=== PATIENT | female | born 1970 | race Caucasian/White ===

== ENCOUNTER 2020-10-31 08:57 | Outpatient (CLI) | payer OTHER, SELFPAY ==
[2020-10-31 09:30] LABS: Basophils Absolute Auto 0.1 K/mm3 (0.0-0.1); Basophils Percent Auto 1.7 % (0.2-1.2); Eosinophils Absolute Auto 0.3 K/mm3 (0-0.3); Eosinophils Percent Auto 3.2 % (0-4.4); Hematocrit 41.8 % (37.0-47.0); Hemoglobin 13.5 g/dL (12.0-15.0); Immature Granulocyte Absolute 0.02 K/mm3 (0.00-0.031); Immature Granulocyte Percent A 0.2 % (0-0.5); Lymphocytes Absolute Auto 3.37 K/mm3 (0.9-3.2); Lymphocytes Percent Auto 41.2 % (18.3-44.2); Mean Corpuscular HGB Conc 32.3 g/dl (32-36); Mean Corpuscular Hemoglobin 29.7 pg (26-34); Mean Corpuscular Volume 91.9 fl (80-100); Mean Platelet Volume 11.2 fl (7.4-10.4); Monocytes Absolute Auto 0.8 K/mm3 (0.1-0.6); Monocytes Percent Auto 10.3 % (2.6-8.5); Neutrophils Absolute Auto 3.6 K/mm3 (1.3-6.7); Neutrophils Percent Auto 43.4 % (45.5-73.1); Platelet Count Result 268 k/mm3 (150-375); Red Blood Count 4.55 M/mm3 (4.2-5.4); Red Cell Distribution Width 12.5 % (11.5-14.5); White Blood Count 8.2 K/mm3 (4.5-10.0)
[2020-10-31 09:41] LABS: Alanine Aminotransferase 27 U/L (4-35); Albumin Level 4.9 g/dL (3.5-5.1); Alkaline Phosphatase 116 U/L (38-126); Anion Gap 10 mmol/L (8-16); Aspartate Amino Transferase 25 U/L (14-36); Bilirubin,Total 0.7 mg/dL (0.2-1.3); Blood Urea Nitrogen 11 mg/dL (7-17); Calcium 9.9 mg/dL (8.4-10.2); Carbon Dioxide 25 mmol/L (22-30); Chloride 106 mmol/L (98-107); Cholesterol 184 mg/dL (0-200); Estimated Glomerular Filt Rate > 60; Glucose 103 mg/dL (65-110); HDL Direct 87 mg/dL; Potassium 4.2 mmol/L (3.4-5.0); Sodium 141 mmol/L (137-145); Triglycerides 126 mg/dL (<150)
[2020-10-31 09:52] LABS: LDL Cholesterol Direct 69 mg/dL
== END 2020-10-31 08:58 | disposition home or self-care (01) ==
PROVIDERS: PCP Internal Medicine; Visit Provider Nurse Practitioner
DX: R10.13 Epigastric pain (principal); Z13.220 Encounter for screening for lipoid disorders
CPT/HCPCS: 36415; 80053; 80061; 84443; 85025

== ENCOUNTER 2020-11-01 08:13 | Outpatient (CLI) | payer OTHER, SELFPAY ==
--- NOTE | ~2020-11-01 | US_ITS ---
EXAMINATION: US abdomen complete DATE: 11/01/2020 08:58 INDICATION: Epigastric pain TECHNIQUE: Multiple grayscale and Doppler ultrasound images of the abdomen were obtained. COMPARISON: None FINDINGS: The pancreatic head and body are normal in appearance. The pancreatic tail is not visualized. Visual ized proximal to mid aorta and inferior vena cava are normal. Liver has normal echogenicity and conto ur, with a smooth surface. No liver lesion identified. No intrahepatic biliary duct dilation suspecte d. Portal venous flow was seen in the hepatopetal, normal direction and has normal Doppler waveform. The gallbladder is normal in appearance. There is no cholelithiasis. The common bile duct measures 3 mm, which is normal. Sonographic Meneses sign was reported as negative by the immigration paralegal. There is n ormal renal contour and echogenicity bilaterally. The right kidney measures at least 6.0 x 3.9 x 3.2 cm but is suboptimally visualized. The left 9.7 x 3.9 x 4.9 cm. There are no focal renal lesions martell ntified. There is no hydronephrosis. Spleen is normal measuring 8.6 cm maximal craniocaudal length. IMPRESSION: 1. Right kidney appears smaller than the left kidney suggesting atrophy but is suboptimally imaged wh ich decreases specificity. Otherwise unremarkable abdominal ultrasound. Reviewed, dictated and finalized at location A. IMPRESSION: 1. Right kidney appears smaller than the left kidney suggesting atrophy but is suboptimally imaged which decreases specificity. Otherwise unremarkable abdomin al ultrasound.
== END 2020-11-01 08:14 | disposition home or self-care (01) ==
LOC: ANHIMG 08:17
PROVIDERS: PCP Internal Medicine; Visit Provider Nurse Practitioner
DX: R10.13 Epigastric pain (principal)
CPT/HCPCS: 76700

== ENCOUNTER 2020-11-02 10:04 | Outpatient (CLI) | payer OTHER, SELFPAY ==
--- NOTE | 2020-11-02 10:35 | EST_ITS ---
Patient Info Name: Kristina Lester Age: 50 years : 1970 Gender: Female Ht: 65 in Wt: 150 lbs BSA: 1.78 m2 HR: 89 bpm BP: 149 / 94 mmHg Heart Rhythm: Sinus Rhythm Exam Date: 11/02/2020 11:17 AM Exam Location: [facility] Stress Patient Status: Outpatient Admit Date: 11/02/2020 Staff Ordering Physician: Samia Tyler NP Attending Provider: Samia Tyler NP Exercise Technologist: Chantale Bingham CT Exercise Physician: Matt Freeman DO Exam Type: CA stress test treadmill Study Info An exercise stress test was performed. Summary 1. 1. Negative Claudio exercise stress test for ischemic ST changes by ECG criteria. 2. 2. Reduced functional capacity, achieving 7 METS of workload. 3. 3. Baseline hypertension. 4. 4. Appropriate HR response to exercise. 5. 5. Appropriate HR recovery at 1 minute post exercise. 6. 6. No imaging with stress testing. 7. 7. Patient informed of the above results. Protocol: Claudio Stress ECG Details Stage: REST Duration (min): 0 min : 52 sec Speed (mph): 0.0 Grade (%): 0 HR (bpm): 86 SBP (mmHg): 149 DBP (mmHg): 94 METS: --- Stage: REST Duration (min): 1 min : 24 sec Speed (mph): 0.0 Grade (%): 0 HR (bpm): 87 SBP (mmHg): 149 DBP (mmHg): 94 METS: --- Stage: REST Duration (min): 13 min : 46 sec Speed (mph): 0.0 Grade (%): 0 HR (bpm): 91 SBP (mmHg): 149 DBP (mmHg): 94 METS: --- Stage: STAGE 1 Duration (min): 1 min : 0 sec Speed (mph): 1.7 Grade (%): 10 HR (bpm): 118 SBP (mmHg): 149 DBP (mmHg): 94 METS: --- Stage: STAGE 1 Duration (min): 2 min : 0 sec Speed (mph): 1.7 Grade (%): 10 HR (bpm): 139 SBP (mmHg): 149 DBP (mmHg): 94 METS: --- Stage: STAGE 1 Duration (min): 3 min : 0 sec Speed (mph): 1.7 Grade (%): 10 HR (bpm): 147 SBP (mmHg): 195 DBP (mmHg): 47 METS: --- Stage: STAGE 2 Duration (min): 1 min : 0 sec Speed (mph): 2.5 Grade (%): 12 HR (bpm): 156 SBP (mmHg): 195 DBP (mmHg): 47 METS: --- Stage: STAGE 2 Duration (min): 2 min : 0 sec Speed (mph): 2.5 Grade (%): 12 HR (bpm): 161 SBP (mmHg): 195 DBP (mmHg): 47 METS: --- Stage: STAGE 2 Duration (min): 2 min : 31 sec Speed (mph): 2.5 Grade (%): 12 HR (bpm): 162 SBP (mmHg): 195 DBP (mmHg): 47 METS: --- Stage: RECOVERY Duration (min): 0 min : 28 sec Speed (mph): 0.0 Grade (%): 0 HR (bpm): 158 SBP (mmHg): 195 DBP (mmHg): 47 METS: --- Stage: RECOVERY Duration (min): 1 min : 28 sec Speed (mph): 0.0 Grade (%): 0 HR (bpm): 129 SBP (mmHg): 195 DBP (mmHg): 47 METS: --- Stage: RECOVERY Duration (min): 2 min : 28 sec Speed (mph): 0.0 Grade (%): 0 HR (bpm): 45 SBP (mmHg): 195 DBP (mmHg): 47 METS: --- Stage: RECOVERY
== END 2020-11-02 10:05 | disposition home or self-care (01) ==
PROVIDERS: PCP Internal Medicine; Visit Provider Nurse Practitioner
DX: R10.13 Epigastric pain (principal)
CPT/HCPCS: 93017

== ENCOUNTER 2020-12-29 08:43 | Outpatient (CLI) | payer OTHER, SELFPAY ==
--- NOTE | ~2020-12-29 | XR_ITS ---
EXAMINATION: XR_CERV2-3V_CR DATE: 12/29/2020 08:57 INDICATION: Neck pain. TECHNIQUE: 3 views of cervical spine were obtained. COMPARISON: None. FINDINGS: There is 2 mm retrolisthesis of C5 on C6. Vertebral body heights are normal. There is moder ately decreased disc height at C5-C6. There is multilevel mild uncovertebral joint osteoarthritis. Th e facet joints are unremarkable. There is mild central canal stenosis at C5-C6. No prevertebral soft tissue swelling. IMPRESSION: 1. Moderate spondylosis at C5-C6. Reviewed, dictated and finalized at location B. 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
== END 2020-12-29 08:44 | disposition home or self-care (01) ==
LOC: ANHIMG 08:46
PROVIDERS: PCP Internal Medicine; Visit Provider Clinical Nurse Specialist
DX: M54.2 Cervicalgia (principal); M47.892 Other spondylosis, cervical region
CPT/HCPCS: 72040

== ENCOUNTER → 2021-01-19 08:09 | Outpatient (CLI) | payer OTHER, SELFPAY ==
--- NOTE | ~2021-01-19 | MR_ITS ---
EXAMINATION: MR cervical spine wo con DATE: 01/19/2021 09:34 INDICATION: Cervical spondylosis without myelopathy or radiculopathy. Neck pain. TECHNIQUE: Magnetic resonance imaging (MRI) of the cervical spine was performed without intravenous c ontrast. Sequences included sagittal T2-weighted FSE, sagittal STIR FSE, sagittal T1-weighted FSE, ax ial MERGE, and axial T2-weighted FSE. COMPARISON: Cervical spine radiographs 01/28/2021 FINDINGS: There is kyphosis of cervical spine. Vertebral body heights are normal. There is severely d ecreased disc height at C5-C6 with endplate remodeling. The spinal cord signal intensity is normal. T he following disc levels are specifically discussed: C2-C3: The disc does not extend beyond the endplate margin. There is no uncovertebral joint osteoarth ritis. There is mild bilateral facet joint osteoarthritis. There is no neural foraminal stenosis. The re is no central canal stenosis. C3-C4: The disc does not extend beyond the endplate margin. There is no uncovertebral joint osteoarth ritis. There is mild left facet joint osteoarthritis. There is no neural foraminal stenosis. There is no central canal stenosis. C4-C5: The disc does not extend beyond the endplate margin. There is moderate right and mild left unc overtebral joint osteoarthritis. There is mild bilateral facet joint osteoarthritis. There is mild bi lateral neural foraminal stenosis. There is no central canal stenosis. C5-C6: The disc is bulging. There is severe bilateral uncovertebral joint osteoarthritis. There is no facet joint osteoarthritis. There is mild bilateral neural foraminal stenosis. There is mild central canal stenosis with ventral indentation of the spinal cord. C6-C7: The disc is bulging. There is mild right and moderate left uncovertebral joint osteoarthritis. There is no facet joint osteoarthritis. There is mild right and moderate left neural foraminal steno sis. There is mild central canal stenosis. C7-T1: The disc does not extend beyond the endplate margin. There is no uncovertebral joint osteoarth ritis. There is moderate severe left facet joint osteoarthritis. There is mild bilateral neural jacki inal stenosis. There is no central canal stenosis. IMPRESSION: 1. Severe cervical spondylosis, worst at C5-C6. Reviewed, dictated and finalized at location A. L TRUCK DRIVER
== END ==
PROVIDERS: PCP Internal Medicine; Visit Provider Clinical Nurse Specialist
DX: M47.812 Spondylosis without myelopathy or radiculopathy, cervical region (principal); M47.813 Spondylosis without myelopathy or radiculopathy, cervicothoracic region; M48.03 Spinal stenosis, cervicothoracic region
CPT/HCPCS: 72141

== ENCOUNTER 2021-02-09 00:21 | Day surgery (SDC) | payer OTHER, SELFPAY ==
[2021-01-21 10:43] VITALS: BMI 25.0
[2021-02-09 10:57] VITALS: BP 141/75; PULSE 85; RESP 16; TEMP 36.4; O2SAT 100
--- NOTE | 2021-02-09 10:58 | WPDANESEPPF ---
Anes - Initial Pre Proc Eval Procedure: Operation Date: 02/09/21 12:30 Proposed Procedures p Esophagogastroduodenoscopy - Wayne Farooq MD Date/Time: 02/09/21 10:58 Surgeon: Wayne Farooq MD Pre Op Diagnosis: epigastric pain Patient Data Age: 51 Gender: F Height: 1.65 m Weight: 65.6 kg Last Vital Signs Temp 97.6 F 02/09/21 10:57 Pulse 85 02/09/21 10:57 Resp 16 02/09/21 10:57 BP 141/75 H 02/09/21 10:57 Pulse Ox 100 02/09/21 10:57 Allergies Allergy/AdvReac Type Severity Reaction Status Date / Time ciprofloxacin Allergy Unknown nosebleeds Verified 02/09/21 10:56 erythromycin base Allergy Unknown Nausea Verified 02/09/21 10:56 Home Medications Medication Instructions Recorded Confirmed Type No Home Medications 10/21/20 02/09/21 History Patient hx anesthesia problems: none Family hx anesthesia problems: none Results Review: All pre-operative results and documents have been reviewed as part of the pre-operative evaluation. [facility] Past Medical History Medical History Allergic rhinitis, cause unspecified Hx of esophageal reflux Simple or unspecified chronic serous otitis media Family History Family History Father Diabetes mellitus Hypertension Grandparent Cancer Social History Social History Smoking status: Never smoker Alcohol intake: unknown Substance use: never Anes - Eval Final PreProcedure Day of Procedure 02/09/21 10:58 Patient weight: overweight Heart: regular rate and rhythm Lungs: clear to auscultation Airway: Mallampati scale class II Neurological: alert and oriented Last oral intake: >/= 8 hours ASA classification: II Emergent: no Anesthetic plan: proceed Anesthesia type and monitoring: general GIVS and standard monitoring Results Review: All pre-operative results and documents have been reviewed as part of the pre-operative evaluation. Informed Consent: The patient's anesthetic plan and its attendant risks and benefits were discussed with the patient/family/POA. Questions were solicited and answers provided to the satisfaction of the patient/family/POA.
[2021-02-09] MEDS: LACTATED RINGERS 1,000 ML 150 ML IV CONT (11:02)
--- NOTE | 2021-02-09 11:10 | PM.HPGS ---
History of Present Illness History of Present Illness Consent: Risks, benefits, and alternatives have been discussed and questions answered. Patient agrees to proceed with procedure. Chief complaint: epigastric pain Narrative: Kristina Lester is a 51 year old female with epigastric pain with radiation to luq and chest, denies gerd in fact tried ppi but did not help, stress test negative, also tried physical therapy without much improvement (also having neck pain). Never had egd Review of Systems Constitutional: Constitutional: Denies headache(s) and Denies weakness Eyes: Eyes: Denies blurry vision ENT: Reports Normal hearing present, Denies headache(s) and Denies neck pain Cardiovascular: Cardiovascular: Denies chest pain and Denies dyspnea Respiratory: Respiratory: Denies dyspnea Gastrointestinal: Gastrointestinal: Reports no additional gastrointestinal complaints Genitourinary: Genitourinary: Denies dysuria Musculoskeletal: Musculoskeletal: Denies neck pain Integumentary/Breasts: Skin/Breast: Denies dry skin Neurologic: Reports Normal hearing present, Denies headache(s) and Denies weakness Psychiatric: Psychiatric: Denies anxiety Endocrine: Endocrine: Denies change in body appearance Hematologic/Lymphatic: Hematologic/Lymphatic: Denies easy bleeding Allergic/Immunologic: Allergic/Immunologic: Denies urticaria PMFSH Past Medical History Medical History Allergic rhinitis, cause unspecified Hx of esophageal reflux Simple or unspecified chronic serous otitis media Family History Family History Father Diabetes mellitus Hypertension Grandparent Cancer Social History Social History Smoking status: Never smoker Alcohol intake: unknown Substance use: never Meds Home Medications and Allergies Home Medications Medication Instructions Recorded Confirmed Type No Home Medications 10/21/20 02/09/21 History Allergies Allergy/AdvReac Type Severity Reaction Status Date / Time ciprofloxacin Allergy Unknown nosebleeds Verified 02/09/21 10:56 erythromycin base Allergy Unknown Nausea Verified 02/09/21 10:56 Vital Signs Vital Signs - 24 hr 02/09/21 10:57 Temperature 97.6 F Pulse Rate 85 Respiratory Rate 16 Blood Pressure 141/75 H Pulse Oximetry 100 Exam Const: General: comfortable and no acute distress HENMT: General nose exam: Normal nares present Eyes: General: appearance normal, both eyes and all related structures Neck: Neck: no JVD Resp: Auscultation: clear to auscultation bilaterally Cardio: Rate: regular rate Rhythm: regular rhythm GI: Inspection: non-distended GI Palp: Yes Soft to palpation Skin: General skin exam: normal color Neuro: General: gait normal Speech: normal speech Extrem: General: normal to inspection Psych: Mental Status: mental status grossly normal Assessment and Plan Assessment and plan (1) Epigastric pain: Code(s): R10.13 - Epigastric pain Status: Acute Assessment and Plan: egd with bx to assess if pain is gi related, ? MSK (2) Neck pain: Code(s): M54.2 - Cervicalgia Status: Acute
[2021-02-09] MEDS: BENZOCAINE (*SP) 60 ML SPRAY CAN (HURRICAINE) 1 SPRAY MUCOUS MEM (11:19)
[2021-02-09 11:27] VITALS: BP 112/68; PULSE 90; RESP 18; O2SAT 97
[2021-02-09 11:37] VITALS: BP 133/74; PULSE 95; RESP 18; O2SAT 99
[2021-02-09 11:47] VITALS: BP 132/70; PULSE 96; RESP 20; O2SAT 99
== END 2021-02-09 11:55 | disposition home or self-care (01) ==
PROVIDERS: PCP Internal Medicine; Visit Provider Internal Medicine Gastroenterology
PROC: 0DJ08ZZ Inspection of Upper Intestinal Tract, Via Natural or Artificial Opening Endoscopic (ICD-10-PCS; CPT 43235; principal; 2021-02-09 12:30)
DX: R10.13 Epigastric pain (principal); M54.2 Cervicalgia
CPT/HCPCS: 43239; 88305; J2704; J7120

== ENCOUNTER 2021-05-04 08:07 | Outpatient (CLI) | payer OTHER, SELFPAY ==
--- NOTE | ~2021-05-04 | XR_ITS ---
EXAMINATION: XR chest 2V DATE: 05/04/2021 08:28 INDICATION: Left chest pain TECHNIQUE: PA and lateral views of the chest were obtained. COMPARISON: None FINDINGS: The lungs are clear with no focal airspace opacities, pulmonary edema, pleural effusion or pneumothor ax. The cardiomediastinal silhouette is normal. Visualized bones and soft tissues are unremarkable. IMPRESSION: 1. No acute cardiopulmonary disease. Reviewed, dictated and finalized at location A.
[2021-05-04 09:19] LABS: Basophils Absolute Auto 0.1 K/mm3 (0.0-0.1); Basophils Percent Auto 1.5 % (0.2-1.2); Eosinophils Absolute Auto 0.2 K/mm3 (0-0.3); Eosinophils Percent Auto 2.5 % (0-4.4); Hematocrit 41.3 % (37.0-47.0); Hemoglobin 12.9 g/dL (12.0-15.0); Immature Granulocyte Absolute 0.02 K/mm3 (0.00-0.031); Immature Granulocyte Percent A 0.3 % (0-0.5); Lymphocytes Absolute Auto 3.15 K/mm3 (0.9-3.2); Lymphocytes Percent Auto 43.2 % (18.3-44.2); Mean Corpuscular HGB Conc 31.2 g/dl (32-36); Mean Corpuscular Hemoglobin 29.1 pg (26-34); Mean Corpuscular Volume 93.2 fl (80-100); Mean Platelet Volume 11.3 fl (7.4-10.4); Monocytes Absolute Auto 0.7 K/mm3 (0.1-0.6); Monocytes Percent Auto 9.6 % (2.6-8.5); Neutrophils Absolute Auto 3.1 K/mm3 (1.3-6.7); Neutrophils Percent Auto 42.9 % (45.5-73.1); Platelet Count Result 240 k/mm3 (150-375); Red Blood Count 4.43 M/mm3 (4.2-5.4); Red Cell Distribution Width 13.1 % (11.5-14.5); White Blood Count 7.3 K/mm3 (4.5-10.0)
[2021-05-04 09:30] LABS: Alanine Aminotransferase 31 U/L (4-35); Albumin Level 4.8 g/dL (3.5-5.1); Alkaline Phosphatase 97 U/L (38-126); Anion Gap 10 mmol/L (8-16); Aspartate Amino Transferase 30 U/L (14-36); Bilirubin,Total 0.9 mg/dL (0.2-1.3); Blood Urea Nitrogen 15 mg/dL (7-17); Calcium 9.5 mg/dL (8.4-10.2); Carbon Dioxide 24 mmol/L (22-30); Chloride 106 mmol/L (98-107); Estimated Glomerular Filt Rate > 60; Glucose 91 mg/dL (65-110); Sodium 140 mmol/L (137-145)
[2021-05-04 09:32] LABS: Rheumatoid Factor < 8.6 IU/ML (<12)
[2021-05-04 11:34] LABS: Erythrocyte Sedimentation Rate 20 mm/hr (0-20)
== END 2021-05-04 08:08 | disposition home or self-care (01) ==
LOC: ANHIMG 08:10
PROVIDERS: PCP Internal Medicine; Visit Provider Clinical Nurse Specialist
DX: Z13.228 Encounter for screening for other metabolic disorders (principal); R10.13 Epigastric pain; M35.3 Polymyalgia rheumatica
CPT/HCPCS: 36415; 71046; 80053; 84443; 85025; 85652; 86038; 86430

== ENCOUNTER 2021-08-04 09:31 | Outpatient (CLI) | payer OTHER, SELFPAY ==
--- NOTE | 2021-08-04 11:30 | NEURO_ITS ---
Impression: # Complains of right upper extremity multiple site pain. # Not diagnostic at this stage for Carpal Tunnel Syndrome. # Normal needle/EMG exam. Nerve Conduction Studies Anti Sensory Summary Table Stim Site NR Peak (ms) P-T Amp (?V) Site1 Site2 Delta-P (ms) Dist (cm) Pawel (m/s) Right Median Anti Sensory (2-3nd Digit) Wrist 2.8 78.7 Wrist 2-3nd Digit 2.8 14.0 50 Wrist 2.8 77.8 Wrist 2-3nd Digit 2.8 14.0 50 Right Radial Anti Sensory (Base 1st Digit) Wrist 2.5 39.4 Wrist Base 1st Digit 2.5 0.0 Right Ulnar Anti Sensory (5th Digit) Wrist 2.7 78.4 Wrist 5th Digit 2.7 14.0 52 Motor Summary Table Stim Site NR Onset (ms) O-P Amp (mV) Site1 Site2 Delta-0 (ms) Dist (cm) Pawel (m/s) Right Median Motor (Abd Poll Brev) Wrist 3.6 7.9 Elbow Wrist 4.4 26.0 59 Elbow 8.0 3.0 Right Ulnar Motor (Abd Dig Minimi) Wrist 2.6 6.4 A Elbow Wrist 4.8 28.0 58 A Elbow 7.4 5.7 F Wave Studies NR F-Lat (ms) L-R F-Lat (ms) Right Median (Mrkrs) (Abd Poll Brev) 26.73 Right Ulnar (Mrkrs) (Abd Dig Min) 27.56 EMG Side Muscle Nerve Root Ins Act Fibs Amp Dur Recrt Comment Right 1stDorInt Ulnar C8-T1 Nml Nml Nml Nml Nml Right Ext Indicis Radial (Post Int) C7-8 Nml Nml Nml Nml Nml Right Ext Digitorum Radial (Post Int) C7-8 Nml Nml Nml Nml Nml Right BrachioRad Radial C5-6 Nml Nml Nml Nml Nml Right PronatorTeres Median C6-7 Nml Nml Nml Nml Nml Right Abd Poll Brev Median C8-T1 Nml Nml Nml Nml Nml MTDD
== END 2021-08-04 09:32 | disposition home or self-care (01) ==
LOC: ANHNEURO 09:32
PROVIDERS: PCP Internal Medicine; Visit Provider Nurse Practitioner Acute Care
DX: G56.01 Carpal tunnel syndrome, right upper limb (principal)
CPT/HCPCS: 95886; 95909

== ENCOUNTER 2021-08-26 14:24 | Outpatient (CLI) | payer OTHER, SELFPAY ==
--- NOTE | ~2021-08-26 | DEXA_ITS ---
Bone Density Report Name: OBEY BOUCHER Age: 51 Sex: Female Ethnicity: White Date of : 1970 Indication: postmenopausal; screening for osteoporosis; Referring Provider: YELITZA HENDRICKSON Study: Bone densitometry was performed. Exam Date: August 26, 2021 Accession number: [id number] Bone Density: Region BMD T-score Z-score Classification AP Spine(L1-L4) 0.858 -1.7 -0.7 Osteopenia Femoral Neck (Left) 0.666 -1.6 -0.7 Osteopenia Total Hip (Left) 0.807 -1.1 -0.5 Osteopenia Femoral Neck (Right) 0.663 -1.7 -0.7 Osteopenia Total Hip (Right) 0.804 -1.1 -0.5 Osteopenia Femoral Neck Mean 0.665 -1.7 -0.7 Osteopenia Total Hip Mean 0.805 -1.1 -0.5 Osteopenia World Health Organization criteria for BMD impression classify patients as: Normal (T-score at or above -1.0), Osteopenia (T-score between -1.0 and -2.5), or Osteoporosis (T-score at or below -2.5). 10-year Fracture Risk(1): Major Osteoporotic Fracture 6.2% Hip Fracture 0.5% Reported Risk Factors: [place] (), Neck BMD=0.663, BMI=24.3 (1) FRAX(R) Version 3.08. Fracture probability calculated for an untreated patient. Fracture probability may be lower if the patient has received treatment. Clinical Information Provided by Patient: Has used the following medications: Vitamin D, Calcium Patient maximum height was 65 Menopause Age: 49 Drinks caffeinated beverages Onset of menses at age 11 Impression: The patient has low bone mass, based on the Total Spine T-score. Discussion: BONE DENSITY IS LOW AT ONE OR MORE SKELETAL SITES. This patient's lowest T-score is low at one or more skeletal sites. It meets the World Health Organization's (WHO) criteria for ?low bone mass? (T-score between -1.0 and -2.5). The patient's 10-year risk of fracture as calculated by FRAX is less than the threshold where pharmacological therapy is recommended by the National Osteoporosis Foundation (NOF). However, all treatment decisions require clinical judgment and consideration of individual patient factors, including patient preferences, comorbidities, previous drug use, risk factors not captured in the FRAX model (e.g., frailty, falls, vitamin D deficiency, increased bone turnover, interval significant decline in bone density) and possible under or overestimation of fracture risk by FRAX. The patient should follow a healthful lifestyle (good nutrition with adequate calcium and vitamin D, and appropriate weight-bearing exercise). Follow-Up: Consider repeating this study in 2 to 3 years to reassess this patient's status, or sooner if there is some new clinical indication. Reported by: Dr. New Light on 08/26/2021 2:44:00 PM. Reviewed, dictated and finalized at location A. [facility] [place]
== END 2021-08-26 14:25 | disposition home or self-care (01) ==
LOC: CHSIMG 14:25
PROVIDERS: PCP Internal Medicine; Visit Provider Clinical Nurse Specialist
DX: Z78.0 Asymptomatic menopausal state (principal)
CPT/HCPCS: 77080

== ENCOUNTER → 2021-11-26 14:40 | Outpatient (CLI) | payer OTHER, SELFPAY ==
--- NOTE | ~2021-11-26 | CT_ITS ---
EXAMINATION: CT abdomen wo con DATE: 11/26/2021 15:14 INDICATION: Epigastric abdominal pain TECHNIQUE: Computed tomography (CT) of the abdomen was performed without intravenous contrast. The do se-length product (DLP) was 227.31 mGy-cm. Automated exposure control and iterative reconstruction te nique were employed. COMPARISON: None FINDINGS: The lung bases are clear. The heart size is normal. The liver, spleen, pancreas, gallbladde r, and adrenal glands are normal. There are no pathologically enlarged lymph nodes. 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 The kidneys are otherwise unremarkab le. There is no free intraperitoneal gas or evidence of bowel obstruction. There is a tiny umbilical hernia containing fat. IMPRESSION: 1. No CT correlate for the patient's symptoms. Reviewed, dictated and finalized at location B.
== END ==
PROVIDERS: PCP Clinical Nurse Specialist; Visit Provider Clinical Nurse Specialist
DX: R10.13 Epigastric pain (principal)
CPT/HCPCS: 74150

== ENCOUNTER 2021-12-29 11:37 | Outpatient (CLI) | payer OTHER, SELFPAY ==
--- NOTE | ~2021-12-29 | MM_ITS ---
EXAMINATION: MM screening zeke BI w [place] HISTORY: Screening mammogram TECHNIQUE: Craniocaudal and mediolateral oblique 3-D tomosynthesis images were obtained and synthetic 2-D images were generated. CAD analysis was submitted and interpreted. COMPARISON: 12/31/2018, 12/25/2015, 12/12/2014 bilateral screening mammogram examinations BREAST PARENCHYMAL COMPOSITION: The breasts are heterogeneously dense, which may obscure small masses . FINDINGS: There is no evidence of suspicious mass, calcification, or architectural distortion to sugg est malignancy in either breast. There has been no suspicious interval change. IMPRESSION: 1. No mammographic evidence of malignancy. 2. Recommend routine screening mammography in one year. BI-RADS Category 1: Negative Reviewed, dictated and finalized at location A. [employer]
== END 2021-12-29 11:38 | disposition home or self-care (01) ==
LOC: CHSIMG 11:38
PROVIDERS: PCP Internal Medicine; Visit Provider Obstetrics & Gynecology
DX: Z12.31 Encounter for screening mammogram for malignant neoplasm of breast (principal)
CPT/HCPCS: 77063; 77067

== ENCOUNTER 2023-01-10 12:15 | Outpatient (RCR) | payer OTHER, SELFPAY ==
--- NOTE | 2022-11-15 15:56 | OTOPEVAL1 ---
Assessment and note entered by Sae Wooten, OTR/Timothy, CHT Evaluation Information Assessment Status Evaluation Subjective Information Patient reports cramping in the right hand that has been going on for at least 3 years. Reports the frequency of the cramping has increased in frequency, duration, and intensity. 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 She has been working remote for 3ish years, which has been exclusively on a computer, and correlates her increased in symptoms due to this. Cervical spine MRI from 2020 shows severe cervical spondylosis at C5-C6. EMG is normal. She reports she had a week off work last month and that her pain reduced and she had less episodes of cramping. Reported Pain Level Pain Score 3: Self Report Assessment OT Clinical Summary Patient referred to OT with cramping in the right hand, which occurs mostly with work (desk job, very repetitive). The cramping has progressively become worse and more frequent. The patient presents today with muscle tightness, soreness, and weakness, which is limiting her funcitonal use of the right hand. Skilled OT indicated for HEP instruction and progression, modalities, manual therapy, and therapeutic exercises. Plan of Care Interventions Therapeutic Exercise,Manual Therapy,Neuro Re- education,Therapeutic Activities,Hot Pack/Cold Pack,Paraffin OT Services Indicated Yes Treatment Frequency and 1x/week for 4 weeks Duration These treatments will address the objective and functional deficits as defined above. The patient will be advanced safely and appropriately in order for the patient to progress towards his/her prior level of function. Additional exercises will be introduced and as well as a comprehensive home exercise program upon discharge, if needed, ?to ensure carryover of functional gains achieved in the clinic. This treatment plan has been reviewed and agreement upon by the patient.
--- NOTE | 2022-11-15 15:57 | OPREHPOC ---
Outpatient Therapy Plan of Care This is a Multidisciplinary Plan of Care that may contain components documented by all disciplines (PT, OT, and ST.) OT Problem 1 OT Problem #1 Knowledge Deficit OT Goal 1 Goal 1. Patient to be independent with instructed materials. Target Visit 5 OT Problem 2 OT Problem #2 Pain OT Goal 1 Goal 1. Patient to report reduced pain to 0/10 at rest. 2. Patient to report reduced frequency of 10/10 pain. Target Visit 5 OT Problem 3 OT Problem #3 Impaired Strength OT Goal 1 Goal 1. Increase right degreasing solution reclaimer strength to 30 lbs. 2. Increase right lateral pinch to 15 lbs. 3. Increase right palmar pinch to 12 lbs. Target Visit 5
--- NOTE | 2022-12-15 15:43 | OTOPPROG ---
Assessment and note entered by Sae Wooten, STEWART/Timothy, CHT Evaluation Information Assessment Status Progress Subjective Information Patient reports reduced frequency and duration of the cramps in the hand. She reports when she does cramp the pain is just as severe however. 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 She has been participating in therapy x5 weeks with the goal of improving functional flexibility and strength to reduce pain and cramping. She is making slow, steady progress with reduced frequency of cramping and improved overall UE strength. Continued skilled OT indicated for HEP instruction and progression, modalities, manual therapy, and therapeutic exercises. Plan of Care Interventions Therapeutic Exercise,Manual Therapy,Neuro Re- education,Therapeutic Activities,Hot Pack/Cold Pack,Paraffin OT Services Indicated Yes Treatment Frequency and 1x/week for 4 weeks Duration These treatments will address the objective and functional deficits as defined above. The patient will be advanced safely and appropriately in order for the patient to progress towards his/her prior level of function. Additional exercises will be introduced and as well as a comprehensive home exercise program upon discharge, if needed, ?to ensure carryover of functional gains achieved in the clinic. This treatment plan has been reviewed and agreement upon by the patient.
--- NOTE | 2023-01-10 13:11 | OTOPDC ---
Assessment and note entered by Sae Wooten, STEWART/Timothy, T Discharge Summary 01/10/23 Subjective Information Patient reports reduced frequency and duration of the cramps in the hand and burning in the wrist. She reports when she does cramp the pain is just as severe however. She has had 6 days off in a row and reports no cramping. We have discussed purchasing an ergonomic mouse also. 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 She has been participating in therapy x9 weeks with the goal of improving functional flexibility and strength to reduce pain and cramping. She is making slow, steady progress with reduced frequency of cramping and improved overall UE strength. Gross strength has improved to normal limits. She tends to do well (no cramping) when having consecutive days off, but symptoms return when she returns to work (repetitive mouse and keyboard use). Discussed workstation ergonomics and recommending an ergonomic mouse. At this time the patient has reached her maximum therapy benefit. Discharging with patient independent with HEP.
== END 2023-01-10 15:49 | disposition home or self-care (01) ==
LOC: ANHGOSHOT 12:15
PROVIDERS: PCP Internal Medicine; Visit Provider Plastic Surgery
DX: R25.2 Cramp and spasm (principal)
CPT/HCPCS: 97018; 97110; 97140; 97165

== ENCOUNTER 2023-03-16 15:30 | Outpatient (RCR) | payer OTHER, SELFPAY ==
[2023-01-16 10:53] VITALS: BP_SYST 98
--- NOTE | 2023-01-16 12:43 | OPREHPOC ---
Outpatient Therapy Plan of Care This is a Multidisciplinary Plan of Care that may contain components documented by all disciplines (PT, OT, and ST.) PT Problem 1 PT Problem #1 Knowledge Deficit PT Goal 1 Goal Pt to be IND with issued HEP Target Visit 8 PT Problem 2 PT Problem #2 Pain PT Goal 1 Goal Pt to report shoulder pain no greater than 3/10 in the last week. Target Visit 8 PT Goal 2 Goal Pt to report 75% improvement in overall symptoms. Target Visit 8 PT Problem 3 PT Problem #3 Impaired Range of Motion PT Goal 1 Goal Pt to improve active shoulder flexion from 92 deg to 140 deg Target Visit 8 PT Goal 2 Goal Pt to improve active shoulder abduction from 96 deg to 140 deg. Target Visit 8 PT Problem 4 PT Problem #4 Impaired Functional Mobil PT Goal 1 Goal Pt to improve UEFI from 30/80 to 65/80. Target Visit 8 PT Goal 2 Goal Pt to be able to lift 5lb overhead without compensations Target Visit 8
--- NOTE | 2023-01-16 12:43 | PTOPEVAL1 ---
Assessment and note entered by Tamara Durbin, PT, DPT Evaluation Information Assessment Status Evaluation Diagnosis R shoulder pain Onset 1 month Subjective Information Pt states she has been doing hand therapy starting in Nov. She states starting in late Nov her started to get more and more sore daily. She states she now has to lift her arm up to put deodorant on. She states it still feels like her arm is getting progressively worse. She states she is unable to sleep on the R shoulder like she normally does. 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 Reported Pain Level Pain Score 4: Self Report Assessment PT Clinical Summary Kristina presents to therapy today for her initial evaluation with a diagnosis of R shoulder pain. Today she demonstrates decreased active and passive ROM, decreased functional strength, tenderness to palpation, and accessory muscle recruitment when compared to her L shoulder. Skilled therapy services are indicated to address the deficits noted above, to improve movement mechanics, and to return to PLOF. UEFI: 30/80 Plan of Care Interventions Electrical Stimulation,Hot Pack/Cold Pack,Manual Therapy,Neuro Re-education,Patient/Caregiver Educati,Therapeutic Activities,Therapeutic Exercise PT Services Indicated Yes Treatment Frequency and 2x/wk for 8 visits Duration These treatments will address the objective and functional deficits as defined above. The patient will be advanced safely and appropriately in order for the patient to progress towards his/her prior level of function. Additional exercises will be introduced and as well as a comprehensive home exercise program upon discharge, if needed, ?to ensure carryover of functional gains achieved in the clinic. This treatment plan has been reviewed and agreement upon by the patient.
[2023-02-13 15:31] VITALS: BP_SYST 124
--- NOTE | 2023-02-13 16:26 | PTOPPROG ---
Assessment and note entered by Tamara Durbin, PT, DPT Evaluation Information Assessment Status Progress Diagnosis R shoulder pain Onset 1 month Subjective Information Pt states her shoulder is really achy today. She states she only got about 2 hours of sleep last night d/t pain. She states since starting therapy her ROM has improved some, her pain is sometimes better, but her pain is not going away. Assessment PT Clinical Summary Kristina presents to therapy today for her progress report following 6 visits of skilled therapy to treat her diagnosis of R shoulder pain. Today she demonstrates improve active and passive ROM since starting therapy but this is still decreased from her uninvolved side. Her pain reports are making slow progress. Continuation of skilled therapy services are indicated to address the deifiers noted above, to improve movement mechanics, and to return to PLOF. UEFI: 47/80 Plan of Care Interventions Electrical Stimulation,Hot Pack/Cold Pack,Manual Therapy,Neuro Re-education,Patient/Caregiver Educati,Therapeutic Activities,Therapeutic Exercise PT Services Indicated Yes Treatment Frequency and 2x/wk for 8 visits Duration These treatments will address the objective and functional deficits as defined above. The patient will be advanced safely and appropriately in order for the patient to progress towards his/her prior level of function. Additional exercises will be introduced and as well as a comprehensive home exercise program upon discharge, if needed, ?to ensure carryover of functional gains achieved in the clinic. This treatment plan has been reviewed and agreement upon by the patient.
--- NOTE | 2023-02-17 11:57 | PCPTNOTE ---
Patient canceled this date due to weather.
[2023-03-16 15:34] VITALS: BP_SYST 100
--- NOTE | 2023-03-16 16:35 | PTOPPROG ---
Assessment and note entered by Tamara Durbin, PT, DPT Evaluation Information Assessment Status Progress Diagnosis R shoulder pain Onset 1 month Subjective Information Pt states she is unsure why she is having so much pain today. 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 She states she is working 12+ hours a day working and states she is debra to get up a few times a day. She states she is seeing some progress but is worried how slow it is going. She states she is now having some days where she does not have the pain during the day, just at night. She states her motion behind her back has not improved. Assessment PT Clinical Summary Kristina presents to therapy today for her progress report following 13 visits of skilled therapy to treat her diagnosis of R shoulder pain. Today she demonstrates slow improvements in her active and passive ROM since starting therapy with mild improvements in her pain. D/t her poor progress in strength, ROM, pain, and functional mobility, it was recommended that pt follow up with her referring provider and ortho prior to continuation of therapy. Plan of Care Interventions Electrical Stimulation,Hot Pack/Cold Pack,Manual Therapy,Neuro Re-education,Patient/Caregiver Educati,Therapeutic Activities,Therapeutic Exercise PT Services Indicated Yes Treatment Frequency and on hold pending follow up with ortho Duration These treatments will address the objective and functional deficits as defined above. The patient will be advanced safely and appropriately in order for the patient to progress towards his/her prior level of function. Additional exercises will be introduced and as well as a comprehensive home exercise program upon discharge, if needed, ?to ensure carryover of functional gains achieved in the clinic. This treatment plan has been reviewed and agreement upon by the patient.
--- NOTE | 2023-04-10 14:37 | PTOPDC ---
Assessment and note entered by Tamara Durbin, PT, DPT Evaluation Information Assessment Status Discharge - Pt Not Present Diagnosis R shoulder pain Onset 1 month Subjective Information Called and followed up with pt. She states she is still doing about the same as when she stopped therapy. States she followed up with ortho who confirmed a torn TRC. She is waiting to see ortho again to determine if there is a need for surgery. Informed pt is ortho wants her to continue therapy will need a new order from them. Assessment PT Clinical Summary Kristina completed 13 visits of skilled therapy. She will be discharged at this time pending ortho results and possible surgery.
== END 2023-04-10 15:35 | disposition home or self-care (01) ==
LOC: ANHGOSHPT 15:30
PROVIDERS: PCP Internal Medicine; Visit Provider Nurse Practitioner
DX: M25.511 Pain in right shoulder (principal)
CPT/HCPCS: 97014; 97110; 97112; 97140; 97161; 97530; G0283

== ENCOUNTER → 2023-03-23 13:44 | Outpatient (CLI) | payer OTHER, SELFPAY ==
--- NOTE | ~2023-03-23 | MR_ITS ---
MRI of the right shoulder Technique: Axial proton-density fat-sat images, coronal proton density fat-sat and T2 fat-sat images, and sagittal T1-weighted and T2 fat-sat images were acquired. Clinical History: Pain Findings: There is minimal degenerative change at the AC joint. Coracoclavicular, coracoacromial, and coracohumeral ligaments appear intact. There is a 7 x 7 mm area of full-thickness tearing at the central aspect of the supraspinatus tendon. No partial or full-thickness tear of the infraspinatus tendon identified. There is background modera te to advanced supraspinatus tendinosis. Subscapularis tendon is intact. Tendon of long head of the b iceps is intact. No labral tear evident. Inferior glenohumeral ligament is intact. There is small glenohumeral joint effusion, with fluid pass ing through the rotator cuff tear into the subacromial/subdeltoid bursa. No degenerative change of th e glenohumeral joint. No muscle atrophy or edema. Impression: 7 x 7 mm full-thickness tear at the central aspect of the supraspinatus tendon. Background moderate to advanced supraspinatus tendinosis. Minimal AC joint degenerative change. Reviewed, dictated and finalized at [facility]. [employer] Impression: 7 x 7 mm full-thickness tear at the central aspect of the supraspinatus tendon. Background moderate to advanced supraspinatus tendinosis. Minimal AC joint degenerative change.
== END ==
PROVIDERS: PCP Nurse Practitioner; Visit Provider Nurse Practitioner
DX: S43.431A Superior glenoid labrum lesion of right shoulder, initial encounter (principal); X58.XXXA Exposure to other specified factors, initial encounter; M19.011 Primary osteoarthritis, right shoulder
CPT/HCPCS: 73221